=== PATIENT | female | born 1990 | race Two or more races ===

== ENCOUNTER → 2025-01-30 | Outpatient (CLI) | payer MEDICAID, SELFPAY ==
--- NOTE | 2025-01-30 | XR_ITS ---
Examination: PA lateral chest 2 views TECHNIQUE: Upright PA lateral chest 2 views Exam date and time: January 30, thousand 25 1326 hours Comparison 9 INDICATIONS: Positive TB skin test. FINDINGS: 3 mm nodule right upper lobe No lobar pneumonia or pulmonary edema The heart is normal in size IMPRESSION: No radiographic findings of tuberculosis
== END | disposition home or self-care (01) ==
PROVIDERS: PCP Nurse Practitioner Family
DX: R76.11 Nonspecific reaction to tuberculin skin test without active tuberculosis (principal)
CPT/HCPCS: 71046